=== PATIENT | female | born 1945 | race Caucasian/White ===

== ENCOUNTER 2017-10-20 19:05 | Emergency (ER) | payer MEDICARE, OTHER ==
--- NOTE | 2017-10-20 20:14 | RAD ---
LEFT KNEE FOUR VIEW 10/20/17 HISTORY: Injury. Pain. COMPARISON: None. FINDINGS: Left knee arthroplasty is in place. No perihardware fracture. There is swelling of the infrapatellar soft tissues. IMPRESSION: Infrapatellar soft tissue swelling may be sequela of contusion. No acute fracture or malalignment. POS: HOME
--- NOTE | 2017-10-20 20:18 | RAD ---
RIGHT KNEE FOUR VIEW: 10/20/17 HISTORY: Injury. COMPARISON: None. FINDINGS: No fracture. No malalignment. Small joint effusion. The exam is done in extension, therefore the meredith lla is elevated. IMPRESSION: No acute abnormality. POS: HOME
--- NOTE | 2017-10-20 20:30 | CT ---
HEAD CT WITHOUT CONTRAST: 10/20/17 HISTORY: Patient lost her balance and fell on the sidewalk. Posttraumatic pain. COMPARISON: None. FINDINGS: There is left frontal temporal scalp soft tissue swelling and hematoma. Underlying calvarium is intac t. Adequate aeration of the paranasal sinuses and left mastoid air cells. There is partial opacificat ion of the right mastoid air cells. Mild soft tissue fullness in the right fossa of Rosenmuller is goyal spected. Directed visualization is recommended to exclude a possible nasopharyngeal mass. No parenchymal hemorrhage or extra-axial hematoma. No midline shift. Basilar cisterns are patent. Bra in volume is age appropriate. Cortical carter-white matter differentiation is preserved. Ventricles and sulci are patent and symmetric. IMPRESSION: 1. Posttraumatic change involving the left scalp. 2. No intracranial posttraumatic change. 3. Asymmetric opacification right mastoid air cells with asymmetric fullness of the right nasoph arynx. Directed visualization is recommended. POS: [facility]
[2017-10-20] MEDS ORDERED: Bacitracin Zinc 1 Packet ONE (20:53)
[2017-10-20] MEDS ORDERED: Adacel (T-DAP) 0.5 ML VIAL ONE (20:53)
== END 2017-10-20 21:27 | disposition home or self-care (01) ==
LOC: NAV ERS 19:05
DX: S06.0X0A Concussion without loss of consciousness, initial encounter (principal); S00.83XA Contusion of other part of head, initial encounter; S80.02XA Contusion of left knee, initial encounter; S80.01XA Contusion of right knee, initial encounter; S60.512A Abrasion of left hand, initial encounter; F32.9 Major depressive disorder, single episode, unspecified; I10 Essential (primary) hypertension; J43.9 Emphysema, unspecified; Z87.891 Personal history of nicotine dependence; Z79.82 Long term (current) use of aspirin; Z79.899 Other long term (current) drug therapy; W18.30XA Fall on same level, unspecified, initial encounter
CPT/HCPCS: 70450; 90471; 90715